=== PATIENT | male | born 1980 | race Asian ===

== ENCOUNTER → 2017-07-24 | Outpatient (CLI) | payer OTHER ==
[~2017-07-24] MED LIST: LOSA1TAB19 PO
== END | disposition home or self-care (01) ==
LOC: WOUND 13:18
PROVIDERS: ATTEND Family Medicine
DX: S41.012D Laceration without foreign body of left shoulder, subsequent encounter (principal); S41.112D Laceration without foreign body of left upper arm, subsequent encounter; I12.9 Hypertensive chronic kidney disease with stage 1 through stage 4 chronic kidney disease, or unspecified chronic kidney disease; N18.2 Chronic kidney disease, stage 2 (mild); Z72.0 Tobacco use; W45.8XXD Other foreign body or object entering through skin, subsequent encounter
CPT/HCPCS: 99214

== ENCOUNTER 2018-07-11 19:58 | Emergency (ER) | payer OTHER ==
[~2018-07-11] VITALS: Ht 167.6 cm; Wt 93.2 kg
[2018-07-11 20:06] VITALS: BP 181/105
== END 2018-07-11 21:46 | disposition home or self-care (01) ==
LOC: ED 21:35
DX: S92.351A Displaced fracture of fifth metatarsal bone, right foot, initial encounter for closed fracture (principal); F17.210 Nicotine dependence, cigarettes, uncomplicated; X50.1XXA Overexertion from prolonged static or awkward postures, initial encounter; Y93.89 Activity, other specified; Y92.009 Unspecified place in unspecified non-institutional (private) residence as the place of occurrence of the external cause; Y99.8 Other external cause status
CPT/HCPCS: 29515; 99283

== ENCOUNTER → 2018-09-24 | Outpatient (CLI) | payer OTHER ==
[2018-09-24 10:39] LABS: BASOPHILS # (AUTO) 0.03 x10^3/uL (0-0.1); BASOPHILS % (AUTO) 1 % (0-1); EOSINOPHILS # (AUTO) 0.23 x10^3/uL (0-0.4); EOSINOPHILS % (AUTO) 4 % (1-7); LYMPHOCYTES # (AUTO) 2.02 x10^3/uL (1-3.4); LYMPHOCYTES % (AUTO) 37 % (22-44); MD NO; MEAN CORPUSCULAR HEMOGLOBIN 27.6 pg (27.5-34.5); MEAN CORPUSCULAR VOLUME 83.6 fL (81-97); MEAN PLATELET VOLUME 6.4 fL (7.4-10.4); MONOCYTES # (AUTO) 0.42 x10^3/uL (0.2-0.8); MONOCYTES % (AUTO) 8 % (2-9); NEUTROPHILS # (AUTO) 2.77 x10^3/uL (1.8-6.8); NEUTROPHILS % (AUTO) 51 % (42-75); PLATELET COUNT 321 x10^3/uL (130-400); RED BLOOD COUNT 5.27 x10^6/uL (4.38-5.82)
[2018-09-24 10:43] LABS: MICROSCOPIC NOT IND
[2018-09-24 10:52] LABS: CHLORIDE 108 mmol/L (98-107)
[2018-09-24 10:59] LABS: ALANINE AMINOTRANSFERASE 65 U/L (12-78); ALBUMIN 4.1 g/dL (3.4-5.0); ALKALINE PHOSPHATASE 55 U/L (45-117); ANION GAP 9 mmol/L (5-15); BILIRUBIN,TOTAL 0.5 mg/dL (0.2-1.0); CALCIUM 8.9 mg/dL (8.5-10.1); CHOL/HDL RATIO 6.1; CHOLESTEROL, TOTAL 209 mg/dL (140-239); CREATININE 1.17 mg/dL (0.7-1.3); HDL CHOL % 16 % (26-37); HDL CHOLESTEROL (DIRECT) 34 mg/dL (40-60); LDL CHOLESTEROL,CALCULATED 98 mg/dL (54-169); LDL/HDL RATIO 2.9 (0.5-3.0); TRIGLYCERIDES 383 mg/dL (50-200); VLDL CHOLESTEROL 77 mg/dL (0-25)
== END | disposition home or self-care (01) ==
LOC: LAB 10:15
PROVIDERS: ATTEND Family Medicine
DX: I10 Essential (primary) hypertension (principal); R53.83 Other fatigue
CPT/HCPCS: 36415; 80053; 80061; 81003; 84403; 85025

== ENCOUNTER 2019-09-08 12:52 | Emergency (ER) | payer OTHER ==
[~2019-09-08] VITALS: Ht 167.6 cm; Wt 96.3 kg
[2019-09-08 12:57] VITALS: BP 162/110
[2019-09-08] MEDS ORDERED: KETOROLAC 30 MG/1 ML IM ONE (13:30)
[2019-09-08] MEDS ORDERED: DIAZEPAM 5 MG TABLET PO ONE (13:30)
[2019-09-08] MEDS ORDERED: KETOROLAC 30 MG/1 ML ONE (13:34)
[2019-09-08] MEDS ORDERED: DIAZEPAM 5 MG TABLET ONE (13:34)
== END 2019-09-08 14:25 | disposition home or self-care (01) ==
LOC: ED 13:45
DX: S39.012A Strain of muscle, fascia and tendon of lower back, initial encounter (principal); I10 Essential (primary) hypertension; X50.0XXA Overexertion from strenuous movement or load, initial encounter; Y93.89 Activity, other specified; Y92.89 Other specified places as the place of occurrence of the external cause; Y99.8 Other external cause status
CPT/HCPCS: 96372; 99283; J1885

== ENCOUNTER → 2020-07-31 | Outpatient (CLI) | payer OTHER ==
[2020-07-31 10:31] LABS: BASOPHILS % (AUTO) 1 % (0-1); EOSINOPHILS % (AUTO) 3 % (1-7); LYMPHOCYTES % (AUTO) 35 % (22-44); MEAN CORPUSCULAR HEMOGLOBIN 27.9 pg (27.5-34.5); MEAN CORPUSCULAR HGB CONC 33.7 g/dL (33.2-36.2); MEAN PLATELET VOLUME 6.8 fL (7.4-10.4); MONOCYTES % (AUTO) 8 % (2-9); NEUTROPHILS % (AUTO) 52 % (42-75); PLATELET COUNT 349 x10^3/uL (130-400); RED CELL DISTRIBUTION WIDTH 13.5 % (9.4-14.8)
[2020-07-31 10:32] LABS: MD NO
[2020-07-31 10:41] LABS: ALANINE AMINOTRANSFERASE 170 U/L (12-78); ALBUMIN 4.3 g/dL (3.4-5.0); CHOLESTEROL, TOTAL 237 mg/dL (140-239)
[2020-07-31 10:43] LABS: ALKALINE PHOSPHATASE 66 U/L (45-117); BILIRUBIN,TOTAL 0.5 mg/dL (0.2-1.0); HDL CHOLESTEROL (DIRECT) 31 mg/dL (40-60); TOTAL PROTEIN 8.8 g/dL (6.4-8.2); TRIGLYCERIDES 251 mg/dL (50-200); VLDL CHOLESTEROL 50 mg/dL (0-25)
[2020-07-31 10:52] LABS: ANION GAP 6 mmol/L (5-15); CHLORIDE 107 mmol/L (98-107)
[2020-07-31 11:10] LABS: CHOL/HDL RATIO 7.6; HDL CHOL % 13 % (26-37); LDL CHOLESTEROL,CALCULATED 156 mg/dL (54-169)
== END | disposition home or self-care (01) ==
LOC: LAB 10:15
PROVIDERS: ATTEND Family Medicine
DX: Z00.00 Encounter for general adult medical examination without abnormal findings (principal); R73.02 Impaired glucose tolerance (oral); E78.5 Hyperlipidemia, unspecified
CPT/HCPCS: 36415; 80053; 80061; 83036; 85025

== ENCOUNTER → 2020-08-14 | Outpatient (CLI) | payer OTHER | END | disposition home or self-care (01) | LOC: RAD 13:46 | PROVIDERS: ATTEND Family Medicine | DX: K11.8 Other diseases of salivary glands (principal) | CPT/HCPCS: 76536 ==

== ENCOUNTER → 2020-09-08 | Outpatient (CLI) | payer OTHER ==
[2020-09-08 10:42] LABS: ALBUMIN 4.2 g/dL (3.4-5.0); ANION GAP 8 mmol/L (5-15); CALCIUM 8.9 mg/dL (8.5-10.1); CHLORIDE 106 mmol/L (98-107)
[2020-09-08 10:55] LABS: % IRON SATURATION 21 % (20-55); ALANINE AMINOTRANSFERASE 107 U/L (12-78); ALKALINE PHOSPHATASE 59 U/L (45-117); BILIRUBIN,TOTAL 0.5 mg/dL (0.2-1.0); CREATININE 1.18 mg/dL (0.7-1.3); IRON LEVEL 89 mcg/dL (65-175); TOTAL IRON BINDING CAPACITY 415 mcg/dL (250-450); TOTAL PROTEIN 8.7 g/dL (6.4-8.2)
== END | disposition home or self-care (01) ==
LOC: LAB 10:17
PROVIDERS: ATTEND Family Medicine
DX: R94.5 Abnormal results of liver function studies (principal); R79.9 Abnormal finding of blood chemistry, unspecified
CPT/HCPCS: 36415; 80053; 80074; 82728; 83540; 83550; 86038

== ENCOUNTER 2020-11-20 13:00 | Emergency (ER) | payer OTHER ==
[~2020-11-20] VITALS: Ht 167.6 cm; Wt 87.0 kg
[2020-11-20 13:11] VITALS: BP 127/87
== END 2020-11-20 13:37 | disposition home or self-care (01) ==
LOC: ED 13:31
DX: Z20.822 Contact with and (suspected) exposure to COVID-19 (principal); I10 Essential (primary) hypertension
CPT/HCPCS: 99283; U0003; U0005